=== PATIENT | female | born 1980 | race Caucasian/White ===

== ENCOUNTER 2025-04-24 16:50 | Emergency (ER) | payer OTHER ==
[~2025-04-24] VITALS: Ht 162.6 cm; Wt 73.5 kg
[2025-04-24 18:42] VITALS: BP 133/90; TEMP 98.4; O2SAT 98
== END 2025-04-24 17:25 | disposition home or self-care (01) ==
LOC: ER 16:50
DX: G89.29 Other chronic pain (principal); Z60.2 Problems related to living alone